=== PATIENT | female | born 1945 | race Caucasian/White ===

== ENCOUNTER 2022-06-26 15:41 | Emergency (ER) | payer OTHER ==
[~2022-06-26] VITALS: Ht 165.1 cm; Wt 66.4 kg
[2022-06-26 16:08] VITALS: BP 106/65
== END 2022-06-26 20:17 | disposition left against medical advice (07) ==
LOC: ER 15:41
DX: R50.9 Fever, unspecified (principal); Z53.21 Procedure and treatment not carried out due to patient leaving prior to being seen by health care provider